=== PATIENT | female | born 1950 | race Caucasian/White ===

== ENCOUNTER 2021-02-25 13:25 | Outpatient (CLI) | payer MEDICARE, BC ==
[2021-02-25 14:41] LABS: Bilirubin Neg (Negative); Blood, Urine 10 (Negative); Clarity Clear (Clear); Glucose, Urine (Dipstick) Normal (Negative); Ketone, Urine Negative (Negative); Leukocyte Negative (Negative); Nitrite Negative (Negative); Protein, Urine (Dipstick) Negative (Neg-Trace); Urobilinogen Normal mg/dL (Less than 2)
[2021-02-25 14:50] LABS: #Basophils 0.1 10x3/uL (0.0-0.2); #Eosinphils 0.3 10x3/uL (0.0-0.5); #Monocytes 1.2 10x3/uL (0.0-1.1); #Neutrophils 7.2 10x3/uL (1.5-8.4); %Basophils 0.7 % (0.0-2.0); %Eosinophils 2.1 % (0.0-6.0); %Lymphocytes 29.2 % (18.0-47.0); %Monocytes 9.7 % (0.0-10.0); %Neutrophils 57.9 % (40.0-75.0); Mean Corpuscular HGB CONC 34.5 g/dL (32.0-36.0); Mean Corpuscular Hemoglobin 31.6 pg (27.0-33.0); Mean Corpuscular Volume 91.7 fl (81.6-98.3); Mean Platelet Volume 11.3 fl (7.4-10.4); Platelet Count 284 10x3/uL (150-450); RBC Distribution Width 12.4 % (11.5-14.5); Red Blood Cell (RBC) Count 5.06 10x6/uL (3.90-5.03); White Blood Cell (WBC) Count 12.5 10x3/uL (3.5-10.5)
[2021-02-25 14:51] LABS: Bacteria/HPF Rare-Few HPF (None Seen); RBC/HPF 0-3 HPF (0-3); Squamous Epithelial 0-3 HPF (0-3); WBC/HPF 0-3 HPF (0-3)
[2021-02-26 01:35] LABS: SARS-CoV-2 PCR by NAA Not Detected (NotDetected)
== END 2021-02-25 13:26 | disposition home or self-care (01) ==
LOC: CSHLAB 13:25
PROVIDERS: ATTEND Orthopaedic Surgery Hand Surgery
DX: Z01.818 Encounter for other preprocedural examination (principal); Z20.822 Contact with and (suspected) exposure to COVID-19; M65.331 Trigger finger, right middle finger
CPT/HCPCS: 81001; 85025; 87635; 93005; 93010; U0003; U0005

== ENCOUNTER 2023-01-10 09:15 | Outpatient (CLI) | payer MEDICARE, BC | END 2023-01-10 09:16 | disposition home or self-care (01) | LOC: CSHCP 09:15 | PROVIDERS: ATTEND Internal Medicine | DX: R06.02 Shortness of breath (principal); R94.2 Abnormal results of pulmonary function studies | CPT/HCPCS: 94060; 94726; 94729; 94760 ==